=== PATIENT | male | born 1950 | race Caucasian/White ===

== ENCOUNTER 2023-10-03 09:27 | Outpatient (AMB) | payer MEDICARE, SELFPAY ==
--- NOTE | 2023-10-03 09:35 | HO.SPINEOV ---
Intake Intake Visit Reasons: severe spinal stenosis Intake Note: Mr. Tong is here today c/o neck pain. Site Inspector Required: No Assessment & Plan Assessment & Plan (1) Cervical spondylosis with myelopathy: Code(s): M47.12 - Other spondylosis with myelopathy, cervical region (2) Rheumatoid arthritis: Code(s): M06.9 - Rheumatoid arthritis, unspecified Qualifiers: Rheumatoid arthritis location: ankle Laterality: bilateral Plan Dear colleague Thank you for referring Gil Tong to the office today with a chief complaint of neck stiffness and hand function loss. HPI: This 73-year-old male with a history of rheumatoid arthritis was very active and athletic until 2 years ago when he had a rapid decline in function following the COVID vaccine. All his joints deteriorated rapidly, he developed weakness and numbness of his hands, balance problems and numbness of his feet. In addition, the mobility of his neck was significantly reduced. The patient showed me a video of him 2 years ago when he was able to do pull-ups. Currently that is not possible anymore. He has great difficulty buttoning his shirts. He can not lift a lb of sugar from the shelf. He was seen and [facility] neurosurgery who recommended a cervical laminectomy. PMH: Rheumatoid arthritis, hypertension, possible diabetes Medications: Aspirin, intermittent prednisone Allergies: NKDA Social history: . 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 Flexion-extension of the neck are severely restricted. Diffuse muscle wasting. Arthritic changes of wrist and hands. Bilateral dexterity loss of the hands. Ambulates with a spastic gait. Romberg is positive. Motor exam is diffusely 5 minutes out of 5. Sensory changes of the digit the 3-5 bilaterally. Radiological Studies: MRI and CT of the cervical spine done at [facility] show severe degenerative disc disease with an auto fusion at C4-5 and near complete disc collapse at C5-C6 with moderate spinal stenosis from C4-C6. The CT scan shows again the auto fusion of C4-5 but also the posterior elements are auto fusing and he has large anterior osteophytes from the body of C5-C6 and C6-7 compromising the esophagus. Impression/Plan: This 73-year-old male is having symptoms of progressive cervical myelopathy due to spinal cord compression. This may at least explain the dexterity loss of his hands and weakness experienced by the patient with balance problems and difficulty walking. We had an extensive discussion about surgical approach. An anterior C5-6 C6-7 would be a possibility and would also address the large anterior osteophytes. However, his history proves that he is forming more bone than usual at this moment and therefore I think removing this anterior osteophyte will only be temporarily before it regrows. The easiest approach would be to do a C4-C6 posterior laminectomy to decompress the spinal cord. He will get clearance from his primary care physician. He needs to stop his aspirin 5 week prior to surgery and I added him to my program for 10/18/2023. Thank you for allowing me to participate in your patients care. total time spent was 50 minutes in counseling ,coordination of plan, personal review of imaging, surgical decision making and subsequent plan Vincent Bush MD, PhD [facility] Trained Neurosurgeon Director, [facility] Coding Level of Care Code New Pt Level 4 (53288) Diagnoses Cervical spondylosis with myelopathy M47.12 Rheumatoid arthritis M06.9 Rheumatoid arthritis location: ankle Laterality: bilateral
== END 2023-10-03 10:34 | disposition home or self-care (01) ==
PROVIDERS: Referring Provider Family Medicine; Visit Provider Neurological Surgery
DX: M47.12 Other spondylosis with myelopathy, cervical region (principal); M06.9 Rheumatoid arthritis, unspecified
CPT/HCPCS: 99204

== ENCOUNTER → 2023-10-03 09:27 | Outpatient (BNVA) | payer MEDICARE, SELFPAY | PROVIDERS: Visit Provider Neurological Surgery | DX: M47.12 Other spondylosis with myelopathy, cervical region (principal); M06.9 Rheumatoid arthritis, unspecified | CPT/HCPCS: 99202 ==

== ENCOUNTER 2023-10-18 08:07 | Day surgery (SDC) | payer MEDICARE, SELFPAY ==
[2023-10-11 12:18] VITALS: BP 164/73; PULSE 75; RESP 16; O2SAT 96; BMI 25.8
--- NOTE | 2023-10-11 12:48 | HO.ANESPROP2 ---
Documented by User: Vidya Samaniego NP 10/11/23 13:08 HPI - Anesthesia Eval Consult details Narrative: 73yo M for C4-5,C5-6 Posterior Laminectomy Medcially cleared, BP elevated and lisinpril dose increase No recent illness No CP/SOB within limits of pain, minimal activity. 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 GERD. Diet controlled CAD s/p stent >20 years ago Asthma. Stable DM. FBS ~ 70 Prednisone 5mg prn RA. 2-3 x weekly PMFSH Active Problems Active Problems: All Active Problems (Updated 10/11/23 @ 12:47 by Diann Tijerina, MILLIE) Rheumatoid arthritis (Acute) Cervical spondylosis with myelopathy (Acute) Past Medical History Medical History Left rotator cuff tear PND (post-nasal drip) Positive QuantiFERON-TB Gold test Spinal stenosis of cervical region Bilateral carpal tunnel syndrome Cervical radicular pain Chronic left shoulder pain GERD without esophagitis Essential hypertension Positive hepatitis C antibody test Seropositive rheumatoid arthritis Former smoker Bilateral carotid artery stenosis Bilateral hearing loss Benign prostatic hyperplasia with lower urinary tract symptoms PSA elevation Testosterone deficiency Insomnia Hypercholesteremia CAD S/P percutaneous coronary angioplasty Coronary artery disease Asthma Diabetes mellitus Family History Family history of problems with anesthesia: No Surgical History Surgical History H/O exploratory laparotomy (~2016) Hx of hernia repair History of carpal tunnel release (~2003) History of coronary artery stent placement History of bilateral knee replacement History of Problems with Anesthesia: No Social History Social History Are you a primary specialist wound care to a significant other at home: No Do you presently have visiting nurse or other home services: No Patient Tobacco Use Status: Former Tobacco user Quit Date: 10/05/2023 Tobacco use type: Cigarette Years Smoked: 40 Second Hand Smoke Exposure: No Meds Allergies Allergy/AdvReac Type Severity Reaction Status Date / Time codeine Allergy Intermediate Shortness Verified 10/11/23 12:11 of Breath Iodinated Contrast Media Allergy Shortness Verified 10/11/23 12:11 [Contrast Dye] of Breath iodine Allergy Shortness Verified 10/11/23 12:11 of Breath atorvastatin AdvReac Muscle Verified 10/11/23 12:11 spasm, vomiting ciprofloxacin AdvReac Muscle Pain Verified 10/11/23 12:11 pravastatin AdvReac Muscle Pain Verified 10/11/23 12:11 rosuvastatin AdvReac Muscle Verified 10/11/23 12:11 cramps tramadol AdvReac lethargy Verified 10/11/23 12:11 Home Medications Medication Instructions Recorded Confirmed Last Taken Type albuterol sulfate 90 mcg/actuation 2 puff inhalation Q4H PRN wheezing 10/10/23 10/10/23 Unknown History aerosol inhaler amitriptyline 10 mg tablet 10 mg PO BEDTIME PRN Insomnia 10/10/23 10/10/23 Unknown History amlodipine 10 mg tablet 10 mg PO DAILY 10/10/23 10/10/23 Unknown History aspirin 81 mg tablet,delayed 81 mg PO DAILY 10/10/23 10/10/23 10/08/23 History release fluticasone 500 mcg-salmeterol 50 2 ea inhalation BID 10/10/23 10/10/23 Unknown History mcg/dose blistr powdr for inhalation (Shaggy Ren[place]) hydrochlorothiazide 25 mg tablet 25 mg PO DAILY 10/10/23 10/10/23 Unknown History lisinopril 40 mg tablet 40 mg PO DAILY 10/10/23 10/10/23 Unknown History metformin 1,000 mg tablet 1,000 mg PO BEDTIME 10/10/23 10/11/23 Unknown History metoprolol succinate 100 mg 100 mg PO DAILY 10/10/23 10/10/23 Unknown History tablet,extended release 24 hr prednisone 5 mg tablet 5 mg PO DAILY PRN Pain 10/10/23 10/10/23 Unknown History tadalafil 5 mg tablet 5 mg PO DAILY 10/10/23 10/10/23 Unknown History tamsulosin 0.4 mg capsule 0.4 mg PO BEDTIME 10/10/23 10/10/23 Unknown History zolpidem 10 mg tablet 10 mg PO BEDTIME PRN Insomnia 10/10/23 10/10/23 Unknown History nitroglycerin 0.4 mg sublingual 0.4 mg sublingual Q5M PRN Chest 10/11/23 10/11/23 Unknown History tablet Pain polyethylene glycol 3350 17 gram 17 g PO DAILY PRN Constipation 10/11/23 10/11/23 Unknown History oral powder packet (Miralax) tadalafil 20 mg tablet 20 mg PO DAILY PRN Erectile 10/11/23 10/11/23 Unknown History Dysfunction Exam Height,Weight and Vital Signs: Height 5 ft 6 in Weight 72.575 kg Last Vital Signs Pulse 75 10/11/23 12:18 Resp 16 10/11/23 12:18 BP 164/73 H 10/11/23 12:18 Pulse Ox 96 10/11/23 12:18 O2 Del Method Room Air 10/11/23 12:18 Pertinent Lab Results Pertinent Lab Results: BMP 10/2023 from outside facility WNL Narrative Narrative: EKG 10/2023 NSR Mod volt criteria for LVH Inferior infact (old) c/w previous, T wave inversion less evident. Airway Mallampati Class: II TM Dist: >3cm Neck ROM: Limited Denture: Upper and Lower Heart: RRR Lungs: RUL ronchi, clears with cough. Otherwise clear. Assessment and Plan Assessment Anesthesia Assessment: Anesthesia Plan Discussed, Smoking Cess. Discussed and PAT Visit Final Anesthetic Review Family History of Problems with Anesthesia: No History of Problems with Anesthesia: No Documented by User: Mk Bundy MD 10/19/23 10:19 [facility] Past Medical History Medical History Left rotator cuff tear PND (post-nasal drip) Positive QuantiFERON-TB Gold test Spinal stenosis of cervical region Bilateral carpal tunnel syndrome Cervical radicular pain Chronic left shoulder pain GERD without esophagitis Essential hypertension Positive hepatitis C antibody test Seropositive rheumatoid arthritis Former smoker Bilateral carotid artery stenosis Bilateral hearing loss Benign prostatic hyperplasia with lower urinary tract symptoms PSA elevation Testosterone deficiency Insomnia Hypercholesteremia CAD S/P percutaneous coronary angioplasty Coronary artery disease Asthma Diabetes mellitus Surgical History Surgical History H/O exploratory laparotomy (~2016) Hx of hernia repair History of carpal tunnel release (~2003) History of coronary artery stent placement History of bilateral knee replacement Social History Social History Are you a primary specialist wound care to a significant other at home: No Do you presently have visiting nurse or other home services: No Patient Tobacco Use Status: Former Tobacco user Quit Date: 10/05/2023 Tobacco use type: Cigarette Years Smoked: 40 Second Hand Smoke Exposure: No Meds Allergies Allergy/AdvReac Type Severity Reaction Status Date / Time codeine Allergy Intermediate Shortness Verified 10/11/23 12:11 of Breath Iodinated Contrast Media Allergy Shortness Verified 10/11/23 12:11 [Contrast Dye] of Breath iodine Allergy Shortness Verified 10/11/23 12:11 of Breath atorvastatin AdvReac Muscle Verified 10/11/23 12:11 spasm, vomiting ciprofloxacin AdvReac Muscle Pain Verified 10/11/23 12:11 pravastatin AdvReac Muscle Pain Verified 10/11/23 12:11 rosuvastatin AdvReac Muscle Verified 10/11/23 12:11 cramps tramadol AdvReac lethargy Verified 10/11/23 12:11 Home Medications Medication Instructions Recorded Confirmed Last Taken Type albuterol sulfate 90 mcg/actuation 2 puff inhalation Q4H PRN wheezing 10/10/23 10/10/23 Unknown History aerosol inhaler amitriptyline 10 mg tablet 10 mg PO BEDTIME PRN Insomnia 10/10/23 10/10/23 Unknown History amlodipine 10 mg tablet 10 mg PO DAILY 10/10/23 10/10/23 Unknown History aspirin 81 mg tablet,delayed 81 mg PO DAILY 10/10/23 10/10/23 10/08/23 History release fluticasone 500 mcg-salmeterol 50 2 ea inhalation BID 10/10/23 10/10/23 Unknown History mcg/dose blistr powdr for inhalation (Shaggy Ren[place]) hydrochlorothiazide 25 mg tablet 25 mg PO DAILY 10/10/23 10/10/23 Unknown History lisinopril 40 mg tablet 40 mg PO DAILY 10/10/23 10/10/23 Unknown History metformin 1,000 mg tablet 1,000 mg PO BEDTIME 10/10/23 10/11/23 Unknown History metoprolol succinate 100 mg 100 mg PO DAILY 10/10/23 10/10/23 Unknown History tablet,extended release 24 hr prednisone 5 mg tablet 5 mg PO DAILY PRN Pain 10/10/23 10/10/23 Unknown History tadalafil 5 mg tablet 5 mg PO DAILY 10/10/23 10/10/23 Unknown History tamsulosin 0.4 mg capsule 0.4 mg PO BEDTIME 10/10/23 10/10/23 Unknown History zolpidem 10 mg tablet 10 mg PO BEDTIME PRN Insomnia 10/10/23 10/10/23 Unknown History nitroglycerin 0.4 mg sublingual 0.4 mg sublingual Q5M PRN Chest 10/11/23 10/11/23 Unknown History tablet Pain polyethylene glycol 3350 17 gram 17 g PO DAILY PRN Constipation 10/11/23 10/11/23 Unknown History oral powder packet (Miralax) tadalafil 20 mg tablet 20 mg PO DAILY PRN Erectile 10/11/23 10/11/23 Unknown History Dysfunction Exam Airway Mallampati Class: III Loose/Missing/Broken Teeth: Yes Assessment and Plan Final Anesthetic Review NPO: Yes ASA Class: III Final Preanesthetic Review: No Changes in Pt Med Stat, Meds/Allgs Chart Reviewed, Consent Obtained/Reviewed and Anes Risks/Benef Reviewed Patient Risk: Intermediate Procedure Risk: Intermediate Assessment/Block/Sedation in SS: Assess/Block/Sedation-SS Anesthetic Plan Anesthetic Plan: GA Disposition: Standard PACU
[2023-10-11 14:25] LABS: Hematocrit 49.2 % (42.0-52.0); Hemoglobin 16.1 g/dl (14.0-18.0); Mean Corpuscular HGB Conc 32.7 g/dl (31.0-36.0); Mean Corpuscular Hemoglobin 29.4 pg (27.0-33.0); Mean Corpuscular Volume 89.8 fL (80.0-98.0); Mean Platelet Volume 11.3 fL (9.4-12.4); Platelet Count 267 X10*3/uL (160-400); Red Blood Count 5.48 X10*6/uL (4.60-5.80); Red Cell Distribution Width 14.2 % (11.0-16.0); White Blood Count 14.9 X10*3/uL (4.8-10.8)
--- NOTE | ~2023-10-18 | FL_ITS ---
EXAMINATION: XR FLUOROSCOPY WITH IMAGES CLINICAL INFORMATION: C4-C5 and C5-C6 posterior laminectomies. COMPARISON: None available. TECHNIQUE: Fluoroscopy Supervised By: Dr. Henry Bush. Fluoroscopy Time: 0.1. Cumulative Dose: 1.21 mGy. DAP: 0.332 Gycm2. Images: 3. FINDINGS: The submitted images show a probe positioned at the level of the C3-C4 posterior interspace. FL/FL guidance in OR IMPRESSION: Intraoperative fluoroscopic guidance is provided during C4-C5 and C5-C6 posterior laminectomies. Please see the patient's Operative Report for full procedural details.
--- NOTE | 2023-10-18 07:10 | MHC.SHP ---
Pre-Procedural Eval Section A - 24 Hr Update-Section A only Date of Service: 10/18/23 The patient is an INPATIENT: No Changes since office visit: No Cold of Flu in the past 2 weeks, No New Medical Problems, No Changes in Medication and No Patient answered all questions The patient has been examined within 24 hours of the surgical procedure. The History & Physical has been completed within 30 days and I have reviewed it.: No Section B - Complete if H&P > 30 days Chief Complaint: Other spondylosis with myelopathy, cervical region Allergies: Allergies Allergy/AdvReac Type Severity Reaction Status Date / Time codeine Allergy Intermediate Shortness Verified 10/11/23 12:11 of Breath Iodinated Contrast Media Allergy Shortness Verified 10/11/23 12:11 [Contrast Dye] of Breath iodine Allergy Shortness Verified 10/11/23 12:11 of Breath atorvastatin AdvReac Muscle Verified 10/11/23 12:11 spasm, vomiting ciprofloxacin AdvReac Muscle Pain Verified 10/11/23 12:11 pravastatin AdvReac Muscle Pain Verified 10/11/23 12:11 rosuvastatin AdvReac Muscle Verified 10/11/23 12:11 cramps tramadol AdvReac lethargy Verified 10/11/23 12:11 Review of Systems Sugical H&P ROS: Negative: Constitution, Cardiovascular, Respiratory, Neurological, Psychiatric, Hem-Onc, Allergic/Immunologic, Gastrointestinal, Genitourinary, Musculoskeletal, Integumentary, Endocrine and Eyes/Ears/Nose/Throat Exam Surgical H&P Exam: Not Evaluated: HEENT, Not Evaluated: Heart, Not Evaluated: Lungs, Not Evaluated: Extremities, Not Evaluated: Abdomen, Not Evaluated: Skin and Not Evaluated: Neurological Plan Diagnosis/Plan: Unchanged C4-6 cervical laminectomy Time Spent With Patient Time: Total time managing care of this patient today __6__ minutes.
[2023-10-18 08:21] VITALS: BP 176/89; PULSE 88; RESP 20; TEMP 36.6; O2SAT 98
[2023-10-18 08:29] VITALS: BMI 26.0
--- NOTE | 2023-10-18 08:30 | PC.NURSE ---
no meds taken anaesthesia aware pt drank plain tea no milk at 0500 today okay to proceed
[2023-10-18] MEDS: Gabapentin 300 MG CAPSULE PO (08:40)
[2023-10-18] MEDS: methocarbamoL 750 MG TABLET PO (08:40)
[2023-10-18] MEDS: Lactated Ringers 1,000 ML 100 ML IVCONT (08:41)
[2023-10-18 08:47] LABS: Glucose, Whole Blood 176 mg/dL (60-115)
--- NOTE | 2023-10-18 11:25 | PM.DS ---
DS: Providers Provider Date of Service: 10/18/23 Date of discharge: 10/18/23 Primary care physician: Nonstaff Physician Admitting clinician: Vincent Bush DS: Diagnosis Discharge Diagnosis (1) Cervical spondylosis with myelopathy: Status: Acute DS: Summary Time Attestation Discharge Coordination Time (in mins): 5 Quality: Safe Use of Opioids Does Pt have an Active Cancer Diagnosis on the Problem List?: No Quality: Stroke Does the patient have a stroke diagnosis?: No Physical Exam Vital Signs: Vital Signs: Last Vital Signs Temp 97.8 F 10/18/23 08:21 Pulse 88 10/18/23 08:21 Resp 20 10/18/23 08:21 BP 176/89 H 10/18/23 08:21 Pulse Ox 98 10/18/23 08:21 O2 Del Method Room Air 10/18/23 08:21 BMI result Body Mass Index 26.0 DS: Data Data Completed and Pending Labs on day of discharge: Laboratory Results - last 24 hr 10/18/23 08:44 POC Glucose 176 H Discharge Plan Discharge Patient Disposition: Home, Self-Care Referrals: Physician,Nonstaff [Primary Care Provider] - 1 Week Discharge Medications: New docusate sodium [Colace] 100 mg capsule 100 mg PO BID Qty: 20 0RF sulfamethoxazole-trimethoprim [Bactrim DS] 800-160 mg tablet 1 tab PO BID 3 Days Qty: 6 0RF tizanidine 4 mg capsule 4 mg PO Q8H PRN (Reason: muscle spasticity) Qty: 30 0RF Continued metoprolol succinate 100 mg tablet extended release 24 hr 100 mg PO DAILY prednisone 5 mg tablet 5 mg PO DAILY PRN (Reason: Pain) Patient Comments: I take it in the morning if my hands are stiff and painful tamsulosin 0.4 mg capsule 0.4 mg PO BEDTIME amitriptyline 10 mg tablet 10 mg PO BEDTIME PRN (Reason: Insomnia) amlodipine 10 mg tablet 10 mg PO DAILY metformin 1,000 mg tablet 1,000 mg PO BEDTIME fluticasone propion-salmeterol [Wixela Inhub] 500-50 mcg/dose blister with device 2 ea INHALATION BID hydrochlorothiazide 25 mg tablet 25 mg PO DAILY zolpidem 10 mg tablet 10 mg PO BEDTIME PRN (Reason: Insomnia) albuterol sulfate 90 mcg/actuation HFA aerosol inhaler 2 puff INHALATION Q4H PRN (Reason: wheezing) lisinopril 40 mg tablet 40 mg PO DAILY tadalafil 5 mg tablet 5 mg PO DAILY aspirin 81 mg Tablet,Delayed Release (Dr/Ec) 81 mg PO DAILY tadalafil 20 mg tablet 20 mg PO DAILY PRN (Reason: Erectile Dysfunction) nitroglycerin 0.4 mg Tablet, Sublingual 0.4 mg SUBLINGUAL Q5M PRN (Reason: Chest Pain) Rx Instructions: do not exceed 3 doses per episode polyethylene glycol 3350 [Miralax] 17 gram Powder In Packet 17 g PO DAILY PRN (Reason: Constipation) Discharge Orders: Discharge Order (Routine); Ordered 10/18/23 Ordered By: Juan Armijo Diet: Advance to usual diet Activity on Discharge: As tolerated Activity Restrictions/Additional Instructions: After your spinal surgery we ask you to observe the following restrictions/guidelines: Activity: It is normal to feel some discomfort as you increase your activity, but that will improve with time. We ask you avoid heavy lifting or acitivities that cause pain. As a general rule, 8lbs is a safe limit for lifting right after surgery. Walk as much as you feel comfortable but not to exhaustion. You will feel extra tired the first few days after surgery. Stay well hydrated. It is OK to walk up and down stairs You may return to driving when you are off narcotics (such as vicodin, oxycodone, dilaudid, etc), and you are back to normal functional capacity. If you have any concerns please check with office before driving. Return to work is specific to each patient and each surgery, so please speak with your doctor/PA at first follow up. Please bring paperwork such as FMLA at that time if you need it filled out. Medications: We did not give you narcotics bc of history of lethargy and shortness of breath, but we did give you a muscle relaxer tizanidine which can help with pain related to muscle spasms For optimum pain control, it is best to start with a combination of 500 mg of Tylenol every 4 hours with 600 mg of Motrin every 8 hours, and use muscle relaxers as needed in between for breakthrough pain. We will give you a short supply of narcotics after surgery (usually one weeks worth). If you need more please call the office but do not use more than prescribed. You will need to give our office 48 hours notice if you need narcotics refilled and we do not fill narcotics on weekends or evenings. If you are on a narcotic, it is a good idea to take a stool softener such as colace or senna to avoid constipation If you take blood thinner such as aspirin, Plavix, Coumadin, Effient, Eliquis etc for conditions such as Afib, DVT, Pulmonary embolus, coronary disease, stents etc please speak with your surgeon about specific details as to when you can resume these medications. You can resume NSAIDs on post op day 1 (eg: Motrin, Naproxen, etc). Follow up: Please call the office, , after surgery to arrange a 3 week follow up for wound check. Wound Care: You may remove your dressing on the first day after surgery. ?You may ?leave open to air. You have mayela in your neck that will need to be removed in 2 weeks IT IS NORMAL FOR THE WOUND TO OOZE OR BE BLOODY FOR A FEW DAYS AFTER SURGERY. ?IF THIS HAPPENS JUST PLACE NEW DRESSING OVER IT TO AVOID STAINING CLOTHES. You may shower on post op day # 1 We ask that you do not let the water soak the wound. If it does get wet, just towel dry lightly. Please do not scrub your incision or place any type of chemical/ointment on the wound. No tub baths, pools or jacuzzis for one month. If you have any leaking or redness from your wound, or fevers, please call office
[2023-10-18 11:36] VITALS: BP 131/71; BP 182/85; PULSE 88; RESP 16; TEMP 36.5; O2SAT 99
[2023-10-18 11:46] VITALS: BP 170/86; PULSE 92; RESP 18; O2SAT 96
[2023-10-18 11:51] VITALS: BP 154/89; PULSE 90; RESP 18; O2SAT 97
--- NOTE | 2023-10-18 12:01 | P.OP_ITS ---
Operative Note Operative Note Date of Service: 10/18/23 Narrative: Preoperative Diagnosis: cervical myelopathy Operation: C4-C6 laminectomy Consent Informed Consent was obtained for this operation. I have explained the nature, purpose and benefits of the operation. I have discussed the risks and benefit of the operation including possible complications or adverse events with patient/family. Alternative(s) were discussed with the patient with their relative benefits and risks as well as the consequences of not accepting the operation were included in obtaining consent. Surgeon: DORA APPLE MD, PHD Procedure Assisted By: Juan Armijo Description of Procedure This patient is suffering from progressive cervical myelopathy with MRI showing spinal cord compression and myelomalacia. He was offered a posterior C4-C6 cervical laminectomy to make sure that the spinal cord has the most space for recover. The patient was offered a decompression. The procedure complications were explained. The patient was consented. The patient was brought to the operating room and endotracheally intubated. The patient was turned in prone position on the gel rolls with the head fixated in Child. Prep and drape was done followed by timeout. a midcervical incision was made. Dissection was carried down the midline to avoid blood loss. The paravertebral muscles were released to expose the C4-C6 laminae in preparation for the laminectomy. a Leksell was used to perform a partial of C4-C6 laminectomy. An x-ray confirmed the correct levels. A # 2. and 3 Kerrison were used to complete a C4-C6 laminectomy. The laminectomy was extended laterally near flush with the p edicles. This resulted in good decompression of the spinal cord. Extensive hemostasis was done after which the physician assistant community manager closed the fascia and subcutaneous layer with 2-0 Vicryl. Meg were used to approximate the incision. All sponge and needle counts were correct. The Child was removed. Patient was extubated and transported in a stable base to the recover room Anesthesia: General Estimated Blood Loss (ml): 100 mL Duration of Surgery: Under 60 Minutes Postoperative Plan: Discharge to home
[2023-10-18 12:10] VITALS: BP 159/87; PULSE 88; RESP 18; TEMP 36.5; O2SAT 97
== END 2023-10-18 14:13 | disposition home or self-care (01) ==
PROVIDERS: Nurse Practitioner; Visit Provider Neurological Surgery
PROC: (CPT 63045; principal; 2023-10-18 10:20)
DX: M47.12 Other spondylosis with myelopathy, cervical region (principal); M43.6 Torticollis; M05.9 Rheumatoid arthritis with rheumatoid factor, unspecified; M19.039 Primary osteoarthritis, unspecified wrist; M19.042 Primary osteoarthritis, left hand; M19.041 Primary osteoarthritis, right hand; M62.50 Muscle wasting and atrophy, not elsewhere classified, unspecified site; I10 Essential (primary) hypertension; R26.1 Paralytic gait; E11.9 Type 2 diabetes mellitus without complications; Z79.82 Long term (current) use of aspirin; Z79.52 Long term (current) use of systemic steroids; Z79.84 Long term (current) use of oral hypoglycemic drugs; Z98.890 Other specified postprocedural states; Z87.891 Personal history of nicotine dependence
CPT/HCPCS: 63045; 63048; 36415; 82947; 85027; J0131; J0690; J1170; J2371; J2704; J3010

== ENCOUNTER → 2023-10-18 08:07 | Outpatient (BNV) | payer MEDICARE, SELFPAY | PROVIDERS: Visit Provider Physician Assistant | DX: M47.12 Other spondylosis with myelopathy, cervical region (principal) | CPT/HCPCS: 63045; 63048; 99499 ==

== ENCOUNTER 2023-11-01 14:37 | Outpatient (AMB) | payer MEDICARE, SELFPAY ==
--- NOTE | 2023-11-01 14:49 | HO.SPINEOV ---
Intake Intake Visit Reasons: 2 wk staple removal Intake Note: Mr. Tong is here today for his 2wk staple removal. Preparation Department Supervisor Required: No Allergies codeine Allergy (Intermediate, Verified 10/11/23 12:11) Shortness of Breath Iodinated Contrast Media [Contrast Dye] Allergy (Verified 10/11/23 12:11) Shortness of Breath iodine Allergy (Verified 10/11/23 12:11) Shortness of Breath atorvastatin Adverse Reaction (Verified 10/11/23 12:11) Muscle spasm, vomiting ciprofloxacin Adverse Reaction (Verified 10/11/23 12:11) Muscle Pain pravastatin Adverse Reaction (Verified 10/11/23 12:11) Muscle Pain rosuvastatin Adverse Reaction (Verified 10/11/23 12:11) Muscle cramps tramadol Adverse Reaction (Verified 10/11/23 12:11) lethargy Assessment & Plan Assessment & Plan (1) Cervical spondylosis with myelopathy: Code(s): M47.12 - Other spondylosis with myelopathy, cervical region Plan Dear Dr Fitzgerald Mr Tong is 2 weeks out from his cervical laminectomy. He is doing amazing with significant improvement in his hand strength, numbness of his arms and his gait. He is very pleased with the results of surgery. His wound is healed up well and I removed the mayela without incident. We discussed activity guidelines, restrictions and expectations after cervical laminectomy. He will follow up with us on an as-needed basis. I did reinforce the need for him to continue to avoid significant heavy lifting for the next month or so. Juan Bush MD, PhD [facility] Coding Level of Care Code Global (81724) Diagnoses Cervical spondylosis with myelopathy M47.12
== END 2023-11-01 15:38 | disposition home or self-care (01) ==
PROVIDERS: Visit Provider Physician Assistant
DX: M47.12 Other spondylosis with myelopathy, cervical region (principal)
CPT/HCPCS: 99024

== ENCOUNTER → 2023-11-01 14:37 | Outpatient (BNVA) | payer MEDICARE, SELFPAY | PROVIDERS: Visit Provider Physician Assistant | DX: M47.12 Other spondylosis with myelopathy, cervical region (principal) | CPT/HCPCS: 99212 ==